=== PATIENT | female | born 1965 ===

== ENCOUNTER 2017-08-15 09:30 | Inpatient (IN) | payer OTHER ==
[~2017-08-15] VITALS: Ht 175.3 cm; Wt 87.1 kg
[2017-08-15] MEDS ORDERED: TOPROL XL50 M1 PO (10:30)
[2017-08-15] MEDS ORDERED: INDAPAMIDE1.25 MG PO (10:31)
[2017-08-24] MEDS ORDERED: CODE1TAB37 PO (11:02)
== END 2017-08-24 11:35 | DRG 743 ==
LOC: OB/GYN 08-22 05:30 → O/R 08-22 05:30 → SURH 08-22 07:00 → OB/GYN 08-22 13:17
PROVIDERS: Obstetrics & Gynecology
PROC: 0UQF8ZZ Repair Cul-de-sac, Via Natural or Artificial Opening Endoscopic (ICD-10-PCS; 2017-08-22)
PROC: 0USG8ZZ Reposition Vagina, Via Natural or Artificial Opening Endoscopic (ICD-10-PCS; 2017-08-22)
PROC: 0TJB8ZZ Inspection of Bladder, Via Natural or Artificial Opening Endoscopic (ICD-10-PCS; 2017-08-22)
PROC: 0UT9FZL Resection of Uterus, Supracervical, Via Natural or Artificial Opening With Percutaneous Endoscopic Assistance (ICD-10-PCS; principal; 2017-08-22 07:00)
DX: D25.1 Intramural leiomyoma of uterus (principal); N81.11 Cystocele, midline; N94.5 Secondary dysmenorrhea; I10 Essential (primary) hypertension; G89.18 Other acute postprocedural pain